=== PATIENT | male | born 1985 | race Caucasian/White ===

== ENCOUNTER 2017-01-17 12:31 | Emergency (ER) | payer BC ==
[2017-01-17 12:40] VITALS: BP 133/85
--- NOTE | 2017-01-17 13:50 | ED Physician Documentation ---
PD HPI UPPER EXT INJURY - Stated complaint Stated Complaint: R SHOULDER PX - Chief complaint Chief Complaint: Ext Problem - History obtained from History obtained from: Patient - History of Present Illness Location: Right, Shoulder Type of injury: Twist (he did lifting overhead) Timing - onset: How many days ago (4-5) Timing - duration: Days Timing - details: Abrupt onset, Still present, Waxing and waning Worsened by: Moving (mostly external rotation and abduction) Associated symptoms: No: Weakness, Numbness Contributing factors: No: Prior ortho surgery Similar symptoms before: No diagnosis (discrete episodes every 1-2 years and hurts for just couple days. Between episodes, will have normal use and ROM without problems. when he was 21, had an injury of AC joint or rotator cuff that did not need surgery. Took few months to heal.) Recently seen: Not recently seen Review of Systems Constitutional: denies: Fever, Chills Skin: denies: Rash, Lesions Neurologic: denies: Focal weakness, Numbness PD PAST MEDICAL HISTORY - Past Medical History Past Medical History: No Musculoskeletal: None - Past Surgical History Past Surgical History: No - Present Medications Home Medications: Ambulatory Orders Medication Instructions Recorded Confirmed Dexamethasone [Decadron] 4 mg PO DAILY #5 tablet 01/17/17 Hydrocodone/Acetaminophen [Revloc 1 each PO Q6H PRN #20 tablet 01/17/17 5-325 Tablet] Loratadine [Allergy Relief] 10 mg PO DAILY 01/17/17 01/17/17 Methocarbamol [Robaxin] 500 mg PO Q6H PRN #25 tablet 01/17/17 - Allergies Allergies/Adverse Reactions: Allergies Allergy/AdvReac Type Severity Reaction Status Date / Time No Known Drug Allergies Allergy Verified 01/17/17 12:40 - Social History Does the pt smoke?: Yes Smoking Status: Current every day smoker Does the pt drink ETOH?: No Does the pt have substance abuse?: No PD ED PE NORMAL - Vitals Vital signs reviewed: Yes - General General: Alert and oriented X 3, No acute distress, Well developed/nourished - Neck Neck: Supple, no meningeal sign, No bony TTP - Derm Derm: Normal color, Warm and dry, No rash - Extremities Extremities: Other (rightr shoulder with good passive ROM without pain nor clicking/popping, no gross laxity on passive stress testing. Active ROM with pain on abduction, ext rotation, and flexion. ) - Neuro Neuro: No motor deficit, No sensory deficit Results - Vitals Vitals: Vital Signs - 24 hr 01/17/17 12:37 Temperature 36.7 C Heart Rate 87 Respiratory 18 Rate Blood Pressure 133/85 H O2 Saturation 97 Oxygen O2 Source Room air PD MEDICAL DECISION MAKING - ED course Complexity details: considered differential (I don't think an xray will be very useful and pt prefers to defer xray. Sounds like rotator cuff strain and consider some shoulder impingement. ), d/w patient Departure - Departure Disposition: Home, Self Care Clinical Impression: Rotator cuff tendonitis Qualifiers: Laterality: right Qualified Code(s): M75.81 - Other shoulder lesions, right shoulder Condition: Stable Record reviewed to determine appropriate education?: Yes Instructions: Rotator Cuff Injury Follow-Up: Gaurav Alvarado MD [Provider Admit Priv/Credential] - Prescriptions: Dexamethasone [Decadron] 4 mg PO DAILY #5 tablet Hydrocodone/Acetaminophen [Revloc 5-325 Tablet] 1 each PO Q6H PRN #20 tablet PRN Reason: Pain Methocarbamol [Robaxin] 500 mg PO Q6H PRN #25 tablet PRN Reason: Spasms Comments: Continue some Ibuprofen 2-3 times daily and add Tylenol or hydrocodone as needed for pain. Methocarbamol muscle relaxant if needed for stiffness/spasms ( may be why it feels better with use and heat). Try to limit to light use of shoulder for a week to allow healing/ less inflammation. Add Decadron steroid daily for 5 days. Recheck with Ortho if not improved over the next 3-5 days, or if frequently recurring episodes. It sounds like a rotator cuff tendonitis/ irritation, but could be related/ occurring from some spurs/ clavicle irregularity that causes it to impinge episodically. Discharge Date/Time: 01/17/17 14:19
== END 2017-01-17 14:19 | disposition home or self-care (01) ==
LOC: ED 12:31
DX: M75.101 Unspecified rotator cuff tear or rupture of right shoulder, not specified as traumatic (principal); X50.9XXA Other and unspecified overexertion or strenuous movements or postures, initial encounter; F17.200 Nicotine dependence, unspecified, uncomplicated
CPT/HCPCS: 99282; 99283

== ENCOUNTER 2017-06-07 17:09 | Emergency (ER) | payer BC ==
[2017-06-07] MEDS ORDERED: HYDROcod/ACET 5/325 Prepack 6 PO STA (17:27)
[2017-06-07] MEDS ORDERED: KETOROLAC 60 MG/2 ML VIAL IM STA (17:27)
--- NOTE | 2017-06-07 17:29 | ED Physician Documentation ---
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 For the last couple of weeks he has had waxing and waning pain of the upper back, and it is inferior and medial to the left shoulder blade. It is worse with deep breathing and motion of the left arm. There is no associated weakness, numbness , tingling, saddle anesthesia or fever.) Review of Systems Constitutional: denies: Fever, Chills Cardiac: denies: Chest pain / pressure, Palpitations Respiratory: denies: Dyspnea, Cough GI: denies: Abdominal Pain PD PAST MEDICAL HISTORY - Past Medical History Musculoskeletal: None - Past Surgical History Past Surgical History: No - Present Medications Home Medications: Ambulatory Orders Medication Instructions Recorded Confirmed HYDROcod/ACETAM 5/325 [[place] 5/325] 1 - 2 ea PO Q6H PRN #15 tablet 06/07/17 Lidocaine Patch 5% [Lidoderm Patch] 1 each TOP DAILY #10 patch 06/07/17 Methocarbamol [Robaxin] 750 mg PO Q6H PRN #15 tablet 06/07/17 - Allergies Allergies/Adverse Reactions: Allergies Allergy/AdvReac Type Severity Reaction Status Date / Time No Known Drug Allergies Allergy Verified 06/07/17 17:15 - Social History Does the pt smoke?: Yes Smoking Status: Current every day smoker Does the pt drink ETOH?: No Does the pt have substance abuse?: No PD ED PE NORMAL - Vitals Vital signs reviewed: Yes - General General: Alert and oriented X 3, No acute distress - Neck Neck: Supple, no meningeal sign, No bony TTP - Cardiac Cardiac: RRR, No murmur - Respiratory Respiratory: No respiratory distress, Clear bilaterally - Back Back: No spinal TTP, Other (Tender to the left rhomboid muscle and has pain with reaching across with the left arm. There is no shingles rash. The patient has equal and normal Achilles and patellar reflexes bilaterally. Normal sensation in all areas of the legs. Patient denies saddle anesthesia. Normal strength in flexion-extension at the ankles, knees, and flexion of the hips.) - Neuro Neuro: Alert and oriented X 3, Normal speech Results - Vitals Vitals: Vital Signs - 24 hr 06/07/17 17:11 Temperature 36.7 C Heart Rate 86 Respiratory 16 Rate Blood Pressure 133/85 H O2 Saturation 97 Oxygen O2 Source Room air PD MEDICAL DECISION MAKING - ED course ED course: The [place] prescription monitoring program was queried with regard to this patient. No concerning findings were found. This patient has seemingly uncomplicated musculoskeletal back pain. The patient has no "red flags." Specifically denies IV drug use, fevers, incontinence, saddle anesthesia. Spinal epidural abscess was considered, given that the patient has no fever, is not diabetic, has no spinal tenderness, does not use IV drugs, and has no bilateral neurologic symptoms, the diagnosis of spinal epidural abscess is considered exceedingly unlikely. Departure - Departure Disposition: Home, Self Care Clinical Impression: Pain of rhomboid muscle Condition: Good Record reviewed to determine appropriate education?: Yes Instructions: ED Neck Back Pain General Prescriptions: HYDROcod/ACETAM 5/325 [[place] 5/325] 1 - 2 ea PO Q6H PRN #15 tablet PRN Reason: Pain Lidocaine Patch 5% [Lidoderm Patch] 1 each TOP DAILY #10 patch Methocarbamol [Robaxin] 750 mg PO Q6H PRN #15 tablet PRN Reason: Spasms Comments: Call your doctor to arrange a follow-up appointment, make the next available appointment. In the interim, return anytime if worse or if new symptoms develop. Do not drink or drive while taking narcotic pain medication. Note that many narcotic pain relievers also contain Tylenol/acetaminophen. Please ensure that your total dose of acetaminophen from all sources does not exceed 3 g (3000 mg) per day. You may get constipated while on this medication. Take a stool softener such as Colace twice a day while you are on it. Also add an [id number]-yxwliek laxative such as senna or MiraLAX on any day that you do not have a bowel movement. If you received a narcotic pain medication or sedative while in the emergency department, do not drive for the next 24 hours. Your blood pressure was elevated today on check into the emergency department. This does not mean that you have hypertension, it is a common phenomenon to come to the emergency department and have elevated blood pressure. I recommend that you see your primary care physician within the week to have it rechecked when you are feeling better. Forms: Activity restrictions
[2017-06-07] MEDS ORDERED: KETOROLAC 60 MG/2 ML VIAL ONE (17:40)
[2017-06-07] MEDS ORDERED: HYDROcod/ACET 5/325 Prepack 6 PO ONE (17:40)
[2017-06-07 18:00] VITALS: BP 150/92
== END 2017-06-07 17:59 | disposition home or self-care (01) ==
LOC: ED 17:09
DX: M54.6 Pain in thoracic spine (principal); M25.512 Pain in left shoulder; F17.200 Nicotine dependence, unspecified, uncomplicated
CPT/HCPCS: 96372; 99283

== ENCOUNTER 2017-11-04 10:19 | Emergency (ER) | payer OTHER, BC ==
[2017-11-04] MEDS ORDERED: MORPHINE 2 MG/ML SYRINGE IVP STA (11:54)
[2017-11-04] MEDS ORDERED: ONDANSETRON 4 MG/2 ML VIAL IVP STA (11:54)
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
[2017-11-04] MEDS ORDERED: IOPAMIDOL-300 100 ML VIAL ONE (12:07)
[2017-11-04 12:08] LABS: BASOPHILS % (AUTO) 0.4 %; EOSINOPHILS # (AUTO) 0.2 10^3/uL (0.0-0.7); EOSINOPHILS % (AUTO) 1.5 %; HGB - HEMOGLOBIN 13.8 g/dL (14.0-18.0); LYMPHOCYTES # (AUTO) 2.9 10^3/uL (1.5-3.5); LYMPHOCYTES % (AUTO) 23.4 %; MEAN CORPUSCULAR HEMOGLOBIN 28.1 pg (27.0-31.0); MEAN CORPUSCULAR HGB CONC 33.9 g/dL (32.0-36.0); MEAN CORPUSCULAR VOLUME 82.8 fL (80.0-94.0); MEAN PLATELET VOLUME 6.8 fL (7.4-11.4); MONOCYTES # (AUTO) 1.5 10^3/uL (0.0-1.0); MONOCYTES % (AUTO) 11.6 %; NEUTROPHILS # (AUTO) 7.9 10^3/uL (1.5-6.6); NEUTROPHILS % (AUTO) 63.1 %; PLT - PLATELET COUNT 232 10^3/uL (130-450); RED BLOOD COUNT 4.93 10^6/uL (4.70-6.10); RED CELL DISTRIBUTION WIDTH 13.3 % (12.0-15.0); WHITE BLOOD COUNT 12.5 x10^3/uL (4.8-10.8)
--- NOTE | 2017-11-04 12:18 | XRAY Preliminary Report ---
Exam: XR HAND 3 VIEW LT IMPRESSION: Negative three-view left hand radiography. [facility] SITE ID: [id number]
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
[2017-11-04 12:20] LABS: ALBUMIN 4.2 g/dL (3.2-5.5); ALBUMIN/GLOBULIN RATIO 1.4 (1.0-2.2); BILIRUBIN,TOTAL 0.4 mg/dL (0.2-1.0); CALCIUM 9.1 mg/dL (8.5-10.3); CREATININE 0.7 mg/dL (0.6-1.2); TOTAL PROTEIN 7.2 g/dL (6.7-8.2)
[2017-11-04 12:32] LABS: BILIRUBIN,URINE NEGATIVE (NEGATIVE); GLUCOSE, URINE (UA) NEGATIVE (NEGATIVE); KETONES,URINE (UA) NEGATIVE (NEGATIVE); LEUKOCYTE ESTERASE, URINE NEGATIVE (NEGATIVE); NITRITE,URINE NEGATIVE (NEGATIVE); OCCULT BLOOD,URINE NEGATIVE (NEGATIVE); PH,URINE 5.5 PH (5.0-7.5); PROTEIN,URINE NEGATIVE (NEGATIVE); UROBILINOGEN,URINE 0.2 (NORMAL) E.U./dL (NORMAL)
[2017-11-04 12:33] LABS: CLARITY,URINE CLEAR (CLEAR)
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
[2017-11-04] MEDS ORDERED: IOPAMIDOL-300 100 ML VIAL IVP ONE (13:11)
--- NOTE | 2017-11-04 13:12 | CT Preliminary Report ---
Exam: CT CERVICAL SPINE W/O IMPRESSION: 1. Possible nondisplaced fracture at the right T2 transverse process. Correlate with exact site of pa in. 2. Otherwise, no acute cervical spine fracture or spondylolisthesis. [facility] SITE ID: [id number]
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
--- NOTE | 2017-11-04 13:14 | CT Preliminary Report ---
Exam: CT HEAD W/O IMPRESSION: 1. No acute intracranial abnormality identified. 2. Paranasal sinus disease with partial opacification of the visualized ethmoids and maxillary sinuse s. [facility] SITE ID: [id number]
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
[2017-11-04 13:24] VITALS: BP 129/88
[2017-11-04] MEDS ORDERED: oxyCOD/ACETAMIN 5 MG/325 MG TABLET PO STA (13:51)
== END 2017-11-04 14:27 | disposition home or self-care (01) ==
LOC: ED 10:19
DX: S22.009A Unspecified fracture of unspecified thoracic vertebra, initial encounter for closed fracture (principal); S09.90XA Unspecified injury of head, initial encounter; S20.219A Contusion of unspecified front wall of thorax, initial encounter; V43.52XA Car driver injured in collision with other type car in traffic accident, initial encounter; F17.200 Nicotine dependence, unspecified, uncomplicated
CPT/HCPCS: 36415; 70450; 71260; 72125; 73130; 74177; 80053; 81003; 83690; 85025; 96374; 99283; A9270; J2270; Q9967; 81001; 87086

== ENCOUNTER 2019-06-25 07:24 | Emergency (ER) | payer BC, MEDICAID ==
[2019-06-25] MEDS ORDERED: ONDANSETRON 4 MG/2 ML VIAL IVP STA (07:53)
[2019-06-25] MEDS ORDERED: SODIUM CHLORIDE 0.9% 1,000 ML IV ONE (07:53)
[2019-06-25] MEDS ORDERED: KETOROLAC 30 MG/ML VIAL IVP STA (07:53)
[2019-06-25 07:56] LABS: BASOPHILS # (AUTO) 0.1 10^3/uL (0.0-0.1); BASOPHILS % (AUTO) 0.7 %; EOSINOPHILS # (AUTO) 0.3 10^3/uL (0.0-0.7); EOSINOPHILS % (AUTO) 2.8 %; HGB - HEMOGLOBIN 14.7 g/dL (14.0-18.0); LYMPHOCYTES # (AUTO) 3.1 10^3/uL (1.5-3.5); LYMPHOCYTES % (AUTO) 34.2 %; MEAN CORPUSCULAR HEMOGLOBIN 28.7 pg (27.0-31.0); MEAN CORPUSCULAR HGB CONC 33.4 g/dL (32.0-36.0); MEAN CORPUSCULAR VOLUME 85.9 fL (80.0-94.0); MEAN PLATELET VOLUME 8.7 fL (7.4-11.4); MONOCYTES # (AUTO) 0.9 10^3/uL (0.0-1.0); MONOCYTES % (AUTO) 9.6 %; NEUTROPHILS # (AUTO) 4.8 10^3/uL (1.5-6.6); NEUTROPHILS % (AUTO) 52.2 %; PLT - PLATELET COUNT 276 10^3/uL (130-450); RED BLOOD COUNT 5.12 10^6/uL (4.70-6.10); RED CELL DISTRIBUTION WIDTH 12.7 % (12.0-15.0); WHITE BLOOD COUNT 9.1 x10^3/uL (4.8-10.8)
--- NOTE | 2019-06-25 07:57 | ED Physician Documentation ---
PD HPI ABD PAIN - Stated complaint Stated Complaint: SEVERE ABD PX/VOMITING - Chief complaint Chief Complaint: Abd Pain - History obtained from History obtained from: Patient - History of Present Illness Timing - onset: Today Timing - details: Abrupt onset Quality: Pain Location: Suprapubic Radiation: Upper back Associated symptoms: Nausea, Vomiting, Constipation, Dizzy, Near syncope / syncope. No: Fever, Hematemesis, Diarrhea, Melena, Hematochezia, Dysuria, Hematuria, Testicular pain Recently seen: Not recently seen - Additional information Additional information: This is a 34-year-old man who presents with complaints that he started with pain above his bellybutton this morning and is been moving down to his mid abdomen is just now above the pubic bone. This woke him up from sleep he was has no idea how long ago that was. He is been vomiting but has not seen any blood in it. Denies any diarrhea fact reports some constipation. He has not urinated since last night. He denies testicular pain but said that he has had "numbness" throughout his body tops of his hands down the back of his legs behind the scrotum just sort of an allover tingly sensation. He feels short of breath and has had palpitations. He was dizzy to the point he almost passed out. Denies history of abdominal surgeries but does have a history of kidney stones. The patient says the pain is waxing and waning but never completely gone. He reports no use of alcohol. He is a smoker and says that he has buprenorphine "in his system". Review of Systems Unable to obtain: Other (Severe pain) Constitutional: denies: Fever Cardiac: reports: Palpitations Respiratory: reports: Dyspnea GI: reports: Abdominal Pain, Nausea, Vomiting, Constipation. denies: Diarrhea : denies: Dysuria, Frequency, Hematuria Skin: reports: Rash PD PAST MEDICAL HISTORY - Past Medical History Musculoskeletal: None - Past Surgical History Past Surgical History: No - Present Medications Home Medications: Ambulatory Orders Medication Instructions Recorded Confirmed HYDROcod/ACETAM 5/325 [[place] 5/325] 1 - 2 ea PO Q6H PRN #15 tablet 06/07/17 Lidocaine Patch 5% [Lidoderm Patch] 1 each TOP DAILY #10 patch 06/07/17 Methocarbamol [Robaxin] 750 mg PO Q6H PRN #15 tablet 06/07/17 Carisoprodol [Soma] 350 mg PO Q8H PRN #15 tablet 11/04/17 HYDROcod/ACETAM 5/325 [[place] 5/325] 1 ea PO Q6H PRN #10 tablet 11/04/17 Ibuprofen [Motrin] 400 mg PO Q6H PRN #30 tablet 11/04/17 Lidocaine Patch 5% [Lidoderm Patch] 1 each TOP DAILY PRN #10 patch 11/04/17 Tamsulosin [Flomax] 0.4 mg PO DAILY #6 capsule 06/25/19 - Allergies Allergies/Adverse Reactions: Allergies Allergy/AdvReac Type Severity Reaction Status Date / Time No Known Drug Allergies Allergy Verified 06/25/19 07:37 - Social History Does the pt smoke?: Yes Smoking Status: Current every day smoker Does the pt drink ETOH?: No Does the pt have substance abuse?: No - Immunizations Immunizations are current?: No PD ED PE NORMAL - Vitals Vital signs reviewed: Yes - General General: Well developed/nourished, Other (Patient is laying on the bed in constant motion and at times clutching at his lower abdomen writhing in pain.) - HEENT HEENT: Atraumatic, Moist mucous membranes - Cardiac Cardiac: RRR, No murmur, Strong equal pulses - Respiratory Respiratory: No respiratory distress, Clear bilaterally - Abdomen Abdomen: Normal bowel sounds, Soft, Other (Abdomen is taut with hypoactive bowel tones. Diffuse guarding.) - Back Back: No CVA TTP - Derm Derm: Normal color, Warm and dry, No rash - Extremities Extremities: No deformity - Neuro Neuro: Alert and oriented X 3, No motor deficit, No sensory deficit, Normal speech - Psych Psych: Normal mood, Normal affect Results - Vitals Vitals: Vital Signs - 24 hr 06/25/19 06/25/19 06/25/19 07:34 08:00 09:09 Temperature 36.7 C Heart Rate 80 72 78 Respiratory 25 H 16 Rate Blood Pressure 147/95 H 141/91 H 127/87 H O2 Saturation 100 99 95 Oxygen O2 Source Room air - Labs Labs: Laboratory Tests 06/25/19 06/25/19 06/25/19 07:46 07:46 08:13 WBC 9.1 RBC 5.12 Hgb 14.7 Hct 44.0 MCV 85.9 MCH 28.7 MCHC 33.4 RDW 12.7 Plt Count 276 MPV 8.7 Neut # (Auto) 4.8 Lymph # (Auto) 3.1 [place] # (Auto) 0.9 Eos # (Auto) 0.3 Baso # (Auto) 0.1 Absolute Nucleated RBC 0.00 Nucleated RBC % 0.0 Sodium 142 Potassium 3.8 Chloride 104 Carbon Dioxide 27 Anion Gap 11.0 BUN 18 Creatinine 0.8 Estimated GFR (MDRD) 112 Glucose 121 H Calcium 10.1 Total Bilirubin 0.5 AST 35 ALT 44 Alkaline Phosphatase 93 Total Protein 7.4 Albumin 4.3 Globulin 3.1 Albumin/Globulin Ratio 1.4 Lipase 30 Urine Color YELLOW Urine Clarity CLEAR Urine pH 7.5 Ur Specific [place] 1.010 Urine Protein NEGATIVE Urine Glucose (UA) NEGATIVE Urine Ketones NEGATIVE Urine Occult Blood NEGATIVE Urine Nitrite NEGATIVE Urine Bilirubin NEGATIVE Urine Urobilinogen 0.2 (NORMAL) Ur Leukocyte Esterase NEGATIVE Ur Microscopic Review NOT INDICATED Urine Culture Comments NOT INDICATED PD MEDICAL DECISION MAKING - ED course Complexity details: reviewed results, d/w patient ED course: 933: The patient's pain was completely resolved after 30 of Toradol IV. He was up and walking around the room. Did have diarrhea in the bathroom but did not see any blood in it. He said it was pretty foul. His abdomen is completely benign soft without guarding at this point. He feels that this was identical to previous kidney stones and was requesting some Flomax in case that he had a stone that popped into his bladder. His urine was clear without blood in it, his kidney function is normal and white blood cell count is normal. I did not feel that any further intervention was needed at this time. He will be discharged with instructions to strain his urine and prescription for Flomax at his request. Take ibuprofen if the pain returns. Return for reevaluation if the pain returns and is not relieved with the ibuprofen, he is vomiting and cannot keep anything down, he develops a fever or is not urinating. Departure - Departure Disposition: 01 Home, Self Care Clinical Impression: Abdominal pain Qualifiers: Abdominal location: unspecified location Qualified Code(s): R10.9 - Unspecified abdominal pain Diarrhea Qualifiers: Diarrhea type: unspecified type Qualified Code(s): R19.7 - Diarrhea, unspecified Condition: Good Instructions: ED Abdominal Pain Unkn Cause Follow-Up: [facility] [Provider Group] Prescriptions: Tamsulosin [Flomax] 0.4 mg PO DAILY #6 capsule Comments: Take ibuprofen if the pain recurs. May use the Flomax for the next 3 to 4 days daily. Strain all urine and save the stone if it is passed. Return if you have increasing pain that is not letting up, you are vomiting and cannot keep anything down, you develop a fever, you are not urinating or urinate varinder blood.
[2019-06-25 08:09] LABS: ALBUMIN 4.3 g/dL (3.2-5.5); ALBUMIN/GLOBULIN RATIO 1.4 (1.0-2.2); BILIRUBIN,TOTAL 0.5 mg/dL (0.2-1.0); CALCIUM 10.1 mg/dL (8.5-10.3); CREATININE 0.8 mg/dL (0.6-1.2); TOTAL PROTEIN 7.4 g/dL (6.7-8.2)
[2019-06-25 08:32] LABS: BILIRUBIN,URINE NEGATIVE (NEGATIVE); GLUCOSE, URINE (UA) NEGATIVE (NEGATIVE); KETONES,URINE (UA) NEGATIVE (NEGATIVE); LEUKOCYTE ESTERASE, URINE NEGATIVE (NEGATIVE); NITRITE,URINE NEGATIVE (NEGATIVE); OCCULT BLOOD,URINE NEGATIVE (NEGATIVE); PH,URINE 7.5 PH (5.0-7.5); PROTEIN,URINE NEGATIVE (NEGATIVE); UROBILINOGEN,URINE 0.2 (NORMAL) E.U./dL (NORMAL)
[2019-06-25 08:38] LABS: CLARITY,URINE CLEAR (CLEAR)
[2019-06-25 10:17] VITALS: BP 126/81
== END 2019-06-25 10:16 | disposition home or self-care (01) ==
LOC: ED 07:24
DX: R10.9 Unspecified abdominal pain (principal); R19.7 Diarrhea, unspecified; F17.200 Nicotine dependence, unspecified, uncomplicated
CPT/HCPCS: 36415; 80053; 81001; 81003; 83690; 85025; 87086; 96361; 96374; 99284

== ENCOUNTER 2022-02-05 08:00 | Outpatient (CLI) | payer MEDICAID ==
[2022-02-05 20:52] LABS: HCT - HEMATOCRIT 42.5 % (42.0-52.0); HGB - HEMOGLOBIN 13.6 g/dL (14.0-18.0); MEAN CORPUSCULAR HEMOGLOBIN 26.7 pg (27.0-31.0); MEAN CORPUSCULAR VOLUME 83.3 fL (80.0-94.0); MEAN PLATELET VOLUME 10.7 fL (7.4-11.4); RED BLOOD COUNT 5.1 10^6/uL (4.70-6.10); WHITE BLOOD COUNT 10.7 x10^3/uL (4.8-10.8)
[2022-02-05 21:06] LABS: ALBUMIN 4.2 g/dL (3.2-5.5); ALBUMIN/GLOBULIN RATIO 1.2 (1.0-2.2); BILIRUBIN,TOTAL 0.4 mg/dL (0.2-1.0); CALCIUM 9.6 mg/dL (8.5-10.3); CREATININE 0.8 mg/dL (0.6-1.2); POTASSIUM 4.7 mmol/L (3.5-5.0); TOTAL PROTEIN 7.6 g/dL (6.7-8.2)
[2022-02-07 03:09] LABS: RPR Non Reactive (Non Reactive)
[2022-02-07 06:10] LABS: HCV AB <0.1 s/co ratio (0.0-0.9)
[2022-02-07 07:10] LABS: HIV SCREEN 4TH GENERATION Non Reactive (Non Reactive)
== END 2022-02-05 23:59 | disposition home or self-care (01) ==
LOC: LAB.N 08:00
PROVIDERS: ATTEND Physician Assistant Medical
DX: R60.0 Localized edema (principal)
CPT/HCPCS: 36415; 80053; 84443; 85027; 86592; 86803; 87389